=== PATIENT | male | born 1930 | race Caucasian/White ===

== ENCOUNTER 2022-02-21 09:11 | Day surgery (SDC) | payer OTHER ==
[~2022-02-21] VITALS: Ht 185.4 cm; Wt 93.0 kg
[~2022-02-21 09:11] MED LIST: AMLO5; AMOCLA875 PO; ASPI81CH; CARVEDILOL12.5 MG PO; DOCU100 PO; DOXA4; ELIQUIS2.5 M1 PO; FURO20; HYDROCODONE-AC1 EA12 PO; LISI20 PO; LOSA50; SIMV40; VICODIN 5/500 PO; WARF2
--- NOTE | 2022-02-21 10:15 | NUR ---
02/21/22 1015 Susan Webster [id number] [id number]
== END 2022-02-21 12:05 | disposition home or self-care (01) ==
LOC: ORSCSDS 09:11
PROVIDERS: Ophthalmology
PROC: 08RJ3JZ Replacement of Right Lens with Synthetic Substitute, Percutaneous Approach (ICD-10-PCS; principal; 2022-02-21 10:30)
DX: H25.11 Age-related nuclear cataract, right eye (principal); H21.81 Floppy iris syndrome; Z96.1 Presence of intraocular lens; I10 Essential (primary) hypertension; I48.91 Unspecified atrial fibrillation; I50.9 Heart failure, unspecified; Z95.0 Presence of cardiac pacemaker; G47.33 Obstructive sleep apnea (adult) (pediatric); E11.9 Type 2 diabetes mellitus without complications; Z79.899 Other long term (current) drug therapy
CPT/HCPCS: J2001; J2250; J3010; J3301; J7040; V2632

== ENCOUNTER 2022-03-26 14:14 | Day surgery (SDC) | payer OTHER ==
[~2022-03-26] VITALS: Ht 185.4 cm; Wt 93.4 kg
--- NOTE | 2022-03-26 14:51 | NUR ---
03/26/22 1451 Sarai Hernandez CALL LIGHT WITHIN REACH. TETRACAINE AT 1446 IN THE LEFT EYE AND PLEDGETT AT 1449
== END 2022-03-26 16:18 | disposition home or self-care (01) ==
LOC: ORSCSDS 14:14
PROVIDERS: Ophthalmology
PROC: 08RK3JZ Replacement of Left Lens with Synthetic Substitute, Percutaneous Approach (ICD-10-PCS; principal; 2022-03-26 15:30)
DX: H25.12 Age-related nuclear cataract, left eye (principal); H21.81 Floppy iris syndrome; I10 Essential (primary) hypertension; E78.5 Hyperlipidemia, unspecified; G47.33 Obstructive sleep apnea (adult) (pediatric); E11.9 Type 2 diabetes mellitus without complications; I48.91 Unspecified atrial fibrillation; Z79.01 Long term (current) use of anticoagulants
CPT/HCPCS: 82947; J2001; J2250; J3010; J3301; J7040; V2632